=== PATIENT | male | born 1950 | race Two or more races ===

== ENCOUNTER 2019-10-27 12:44 | Emergency (ER) | payer OTHER ==
[~2019-10-27] VITALS: Ht 170.2 cm; Wt 81.6 kg
[2019-10-27] MEDS ORDERED: CHILDREN'S ASPI81 MG PO (13:12)
[2019-10-27] MEDS ORDERED: AVAPRO150 MG PO (13:12)
== END 2019-10-27 20:28 | disposition home or self-care (01) ==
LOC: ER 12:44 → CPU-OBS 12:57 → ER 20:28
DX: R07.89 Other chest pain (principal); I16.0 Hypertensive urgency; I10 Essential (primary) hypertension
CPT/HCPCS: G0378; G0379; 93005

== ENCOUNTER → 2019-10-30 | Emergency (ER) | payer OTHER ==
[~2019-10-30] VITALS: Ht 170.2 cm; Wt 81.6 kg
[~2019-10-30] MED LIST: AVAPRO150 MG PO; CHILDREN'S ASPI81 MG PO
== END | disposition designated cancer center or children's hospital (05) ==
LOC: ER 00:23 → CPU-OBS 00:24 → ER 00:24
DX: I21.19 ST elevation (STEMI) myocardial infarction involving other coronary artery of inferior wall (principal)
CPT/HCPCS: G0378; G0379; 93005

== ENCOUNTER 2021-07-03 17:21 | Emergency (ER) | payer OTHER ==
[~2021-07-03] VITALS: Ht 170.2 cm; Wt 83.9 kg
[2021-07-03] MEDS ORDERED: BRILINTA90 MG (18:15)
[2021-07-03] MEDS ORDERED: ZINC50 M1 (18:15)
[2021-07-03] MEDS ORDERED: KRILL OIL500 MG (18:15)
[2021-07-03] MEDS ORDERED: ALTACE1.25 MG (18:15)
[2021-07-03] MEDS ORDERED: ATORVASTATIN CA40 MG (18:15)
[2021-07-03] MEDS ORDERED: VIT C-ROSE HIP500 MG (18:16)
== END 2021-07-03 19:48 | disposition home or self-care (01) ==
LOC: ER 17:21
DX: S61.002A Unspecified open wound of left thumb without damage to nail, initial encounter (principal); W31.2XXA Contact with powered woodworking and forming machines, initial encounter; Y92.019 Unspecified place in single-family (private) house as the place of occurrence of the external cause

== ENCOUNTER 2021-11-20 08:00 | Outpatient (CLI) | payer OTHER ==
[~2021-11-20 08:00] MED LIST changes: +ALTACE1.25 MG; +ATORVASTATIN CA40 MG; +BRILINTA90 MG; +KRILL OIL500 MG; +VIT C-ROSE HIP500 MG; +ZINC50 M1
== END 2021-11-20 08:30 | disposition home or self-care (01) ==
LOC: PPH VACUNA 08:00
PROVIDERS: ATTEND Emergency Medicine Pediatric Emergency Medicine
DX: Z23 Encounter for immunization (principal)

== ENCOUNTER 2022-07-29 11:13 | Outpatient (CLI) | payer OTHER | END 2022-07-29 11:23 | disposition home or self-care (01) | LOC: PPH VACUNA 11:13 | PROVIDERS: ATTEND Emergency Medicine Pediatric Emergency Medicine | DX: Z23 Encounter for immunization (principal) ==

== ENCOUNTER 2023-04-08 09:20 | Outpatient (CLI) | payer OTHER | END 2023-04-08 09:34 | disposition home or self-care (01) | LOC: SONOGRAMA 09:20 | PROVIDERS: ATTEND Specialist | DX: N19 Unspecified kidney failure (principal) ==

== ENCOUNTER 2023-09-16 13:19 | Outpatient (CLI) | payer OTHER | END 2023-09-16 13:26 | disposition home or self-care (01) | LOC: RAD 13:19 | PROVIDERS: ATTEND Internal Medicine | DX: I10 Essential (primary) hypertension (principal) ==

== ENCOUNTER 2023-09-20 07:53 | Outpatient (CLI) | payer OTHER | END 2023-09-20 07:56 | disposition home or self-care (01) | LOC: NUCLEAR 07:53 | PROVIDERS: ATTEND Internal Medicine | DX: I25.10 Atherosclerotic heart disease of native coronary artery without angina pectoris (principal); I10 Essential (primary) hypertension; E78.2 Mixed hyperlipidemia ==

== ENCOUNTER 2023-09-28 07:17 | Outpatient (CLI) | payer OTHER | END 2023-09-28 07:26 | disposition home or self-care (01) | LOC: RAD 07:17 | PROVIDERS: ATTEND Internal Medicine Gastroenterology | DX: R10.9 Unspecified abdominal pain (principal); E13.10 Other specified diabetes mellitus with ketoacidosis without coma ==